=== PATIENT | female | born 1955 | race Hispanic/Latino ===

== ENCOUNTER 2024-10-11 06:07 | Observation (INO) | payer MEDICARE ==
[2024-10-07 08:50] LABS: IMMATURE GRANULOCYTE ABSOLUTE 0.01 K/uL (0-1); NUCLEATED RED BLOOD CELLS 0.0 % (0.0-0.19); PLATELET COUNT (AUTO) 263 K/uL (130-400); RED BLOOD CELL COUNT(AUTO) 4.55 MIL/uL (4.00-5.50); RED CELL DISTRIBUTION WIDTH 12.6 % (11.0-15.5); WHITE BLOOD COUNT (AUTO) 8.0 K/uL (4.8-10.8)
[2024-10-07 09:04] LABS: INR 0.95 (0.85-1.15)
[2024-10-07 09:11] LABS: APPEARANCE,URINE CLEAR (CLEAR); GLUCOSE, URINE (UA) NEGATIVE (NEGATIVE); LEUKOCYTE ESTERASE ,URINE NEGATIVE Leu/uL (NEGATIVE); NITRATE,URINE NEGATIVE (NEGATIVE); OCCULT BLOOD,URINE NEGATIVE (NEGATIVE)
--- NOTE | 2024-10-07 09:22 | EKG ---
[facility] Test Date: 2024-10-07 Test Time: 08:41:39 Pat Name: CARLIN NATHAN Department: [facility] Room: Gender: F [place] Manager: [id number] : 1955 Requested By: LAURIE LANDAVERDE Order Number: [id number] Reading MD: Sangita Casey Measurements Intervals [place] Rate: 61 P: 29 OR: 181 QRS: 48 QRSD: 81 T: 42 QT: 424 QTc: 427 Interpretive Statements Sinus rhythm Compared to ECG 09/14/2024 09:18:12 No significant changes Electronically Signed On 10-07-2024 12:27:52 CDT by Sangita Casey Please click the below link to view image of tracing.
[2024-10-07 09:29] VITALS: BP 112/75; PULSE 74; RESP 13; TEMP 97.9
[2024-10-07 10:00] LABS: ADD UA MICROSCOPIC NO
[2024-10-07 10:39] LABS: CREATININE 0.5 mg/dL (0.5-1.0); GLOMERULAR FILTR. RATE CALC 101.0 mL/min (>90); GLUCOSE,RANDOM 107.0 mg/dL (70-105); SODIUM SERUM 140.0 mmol/L (136-145); UREA NITROGEN, BLOOD 22.0 mg/dL (7-18)
[2024-10-11] VITALS (25 sets, daily range): BP systolic 97–133; BP diastolic 54–76; PULSE 60–99; RESP 15–20; TEMP 97.5–98.5; O2SAT 96–97
[~2024-10-11] VITALS: Ht 149.9 cm; Wt 71.8 kg
[~2024-10-11 06:07] MED LIST: ALEN70TA80 PO; ATOR10 PO; CALCIUM VITD PO; HYDR25TA PO; MULT1TAB67 PO; VITA100C27 PO
[2024-10-11] MEDS: LACTATED RINGERS 1000ML 1,000 ML IV ONE (06:49)
[2024-10-11] MEDS ORDERED: LIDOCAINE PF 100MG/5ML (2%) SYRINGE 5ML ONE (08:18)
[2024-10-11] MEDS ORDERED: GLYCOPYRROLATE 0.2 MG/ML 5 ML VIAL ONE (08:19)
[2024-10-11] MEDS ORDERED: NEOSTIGMINE METHYLSULFATE 1MG/ML IV ONE (08:19)
[2024-10-11] MEDS ORDERED: SUCCINYLCHOLINE CHLORIDE 20 MG/ML 10 ML VIAL ONE (08:19)
[2024-10-11] MEDS ORDERED: MIDAZOLAM HCL 1 MG/ML 2ML VIAL ONE (08:20)
[2024-10-11] MEDS ORDERED: VANCOMYCIN 500 MG IV ONE (10:08)
[2024-10-11] MEDS ORDERED: [UNRECOGNIZED DRUG - OTHER] IV ONE (10:08)
--- NOTE | 2024-10-11 12:09 | OP ---
Operative Note: DATE OF PROCEDURE: 10/11/24 SURGEON: LAURIE LANDAVERDE MD MACHINE TOOL TECHNOLOGY INSTRUCTOR: [Toshia Anaya CFA] ANESTHESIA: [General anesthesia] ANESTHESIOLOGIST/MAIL PROCESSING EQUIPMENT MECHANIC: [Cale Woo CRNA] PREOPERATIVE DIAGNOSIS: [Right distal ulna osteotomy loss of fixation] POSTOPERATIVE DIAGNOSIS: [Right distal ulna osteomyelitis, infected hardware] PROCEDURE: [Right distal ulna removal of hardware, excisional debridement, bone curettage, jet lavage antibiotic irrigation placement of antibiotic loaded cement sticks x7 (two intraosseous and five peripheral] ESTIMATED BLOOD LOSS: [60 mL] INDICATIONS: [The patient is a 68-year-old female status post ulnar shortening osteotomy for treatment of an abutment syndrome recently. The patient presented to our office for evaluation and it was noted that the screws from the plates were loose and there was some loss of the osteotomy alignment. The patient's wound look well healed and there were no signs of infection such as redness, drainage, pain or decreased range of motion, night sweats or fevers. The patient was brought to the operating room for a removal of the hardware and read do internal fixation of the osteotomy. Procedure understood, risks, benefit and possible complications and the patient agreed to sign the consent form] DESCRIPTION OF PROCEDURE: [After adequate general anesthesia was achieved the patient's right upper extremity was prepped and draped in the usual manner, previous placement of the tourniquet in the proximal arm. The extremity was elevated and exsanguinated with a an Esmarch band and then tourniquet was inflated to 250 mmHg, the Esmarch band being then removed. The previous incision present in the distal ulnar aspect of the forearm which was well healed was then reopened Posey an incision through the skin followed by dissection of the subcutaneous tissue noticing that this was slightly inflamed. Further dissection down to the shaft of the ulna to expose the plate reveal the collection of cloudy fluid present in the surrounding area which was culture. After further dissection the 1st ulnar plate was identified and it was noted that the patient had significant loosening of the screws which were very easily removed as well as the plate. The patient had inflammation of the periosteum as well as inflammatory material that was debrided and cultured also. The osteotomy side had a very obvious nonunion with presence also of the inflammatory material which was removed with the rongeur and then the ulnar canal of the osteotomy site was cleaned with the use of curette as well as the screw holes in the bone removing some more material which was also sent for cu ltures. There was no gross purulence noted but definitely the tissue looked very inflamed and very suspicious for infection. The surrounding tissue of the dorsal than volar aspect of the ulna were then sharply debrided. Then the wound was copiously irrigated with jet lavage containing Ancef for a total of 3 L. Once the wound was completely debrided we proceeded then to prepare in the back table a bag of bone cement to which we added 2 g of vancomycin and then we proceeded to make a small sticks of the cement and once they were dry we proceeded then to insert one at each end of the bone in the ulnar canal and then five more were applied around the ulna for a total of seven cement sticks. While the cement was being prepared we also proceeded to deflate the tourniquet and the police were controlled with the use of the Bovie cautery and we noticed that the bone was having adequate circulation and there were no signs of necrosis. After the sticks were applied we then proceeded to close the wound with a approximation of the subcutaneous tissue with 2-0 Vicryl inverted stitches followed by closure of the skin with 3-0 nylon horizontal mattress stitches. The wound was covered with a Xeroform gauze as well as 4x4s, cast padding and a short-arm volar splint was then applied. The patient was then awakened and extubated and taken to recovery room for follow-up by anesthesia. There were no complications] LAURIE LANDAVERDE MD Oct 11, 2024 12:09
--- NOTE | 2024-10-11 12:15 | NUR ---
Unit arrival Patient arrived to the unit via bed escorted by REAL ESTATE CLOSING COORDINATOR. Patient and surgical limb assessment completed. Patient oriented to the room and educated on postop vitals and post surgical neurovascular checks. She was left in locked and low position and in no distress. Spouse at bedside.
[2024-10-11] MEDS: 0.9%NACL 1000ML 1,000 ML IV SCH (13:02)
--- NOTE | 2024-10-11 13:20 | NUR ---
Patient voided a large amount in the toilet.
--- NOTE | 2024-10-11 16:00 | NUR ---
BEDSIDE SWALLOW EVAL COMPLETED. No s/s of aspiration. Recommend regular solids, thin liquids and pills whole with liquids as tolerated. SALES ASSOCIATE KEY HOLDER reviewed results and recommendations with patient and nurse Jennifer. SALES ASSOCIATE KEY HOLDER educated patient on risks and consequences of aspiration. Speech therapy not warranted at this time. All questions answered. Addendum: 10/11/[address] OSMEL WICK Amended: Links added.
[2024-10-11] MEDS: ASPIRIN 81 MG EC TAB PO SCH (20:23)
--- NOTE | 2024-10-11 20:56 | NUR ---
PT requests PT eval order during day shift. No order present as of this time MD is still in OR. PT eval rendered as patient was already up walking in room with nursing. Sling was adjusted, patient was provided with ice, water, SCDS and extra pillows and wedges to elevate arm. Pt education provided regarding postioning of arm, DC planning and plan of care. Education provided regarding pain management. Fall alarm and call wright in reach. Please enter the PT order for eval. Thanks.
[2024-10-12] VITALS (7 sets, daily range): BP systolic 96–121; BP diastolic 56–76; PULSE 64–91; RESP 16–20; TEMP 97.6–98; O2SAT 96–99
--- NOTE | 2024-10-12 12:15 | PN ---
Late entry. Patient seen this morning at 8:00 a.m.. Ortho postop day one. The patient is awake alert and oriented. She is resting comfortably seated in a chair at the bedside. Vital signs have remained stable and she has remained afebrile. WBCs also normal. Pending cultures. Voiding on her own without difficulty. She is ambulating in the confines of her room. Laboratory results reviewed. Discuss operative findings. Discussed we will need to consider IV infusion for antibiotics. Patient states her insurance likely covers that and we will defer that to case management. Her dressing is intact. She is able to make a near full composite fist and I have advised her to keep mobility of the interphalangeal joints to avoid stiffness. Assessment: Removal of distal ulnar hardware, excision no debridement, bone curettage, jet lavage with the antibiotic irrigation, placement of antibiotic loaded cement sticks x7 (two intraosseous and five peripheral) Plan: Continue with Dr. Rich protocol. Continue with discharge planning. Vitals/Labs Vital Signs Date Time Temp Pulse Resp B/P (MAP) Pulse Ox O2 Delivery O2 Flow Rate FiO2 10/12/24 08:43 99 Room Air* 0 21 10/12/24 08:00 98.1 91 20 121/76 Medications Current Medications Cefazolin Sodium 2 gm STK-MED ONCE .ROUTE; Start 10/11/24 at 06:21; Stop 10/11/24 at 06:21; Status DC Lactated Ringer's 1,000 ml @ As Directed STK-MED ONCE IV Last administered on 10/11/24at 06:49; Start 10/11/24 at 06:21; Stop 10/11/24 at 06:21; Status DC Lidocaine HCl 100 mg STK-MED ONCE .ROUTE; Start 10/11/24 at 08:18; Stop 10/11/24 at 08:18; Status DC Ondansetron HCl 4 mg STK-MED ONCE .ROUTE; Start 10/11/24 at 08:18; Stop 10/11/24 at 08:19; Status DC Succinylcholine Chloride 200 mg STK-MED ONCE .ROUTE; Start 10/11/24 at 08:19; Stop 10/11/24 at 08:19; Status DC Dexamethasone Sodium Phosphate 10 mg STK-MED ONCE .ROUTE; Start 10/11/24 at 08:19; Stop 10/11/24 at 08:19; Status DC Glycopyrrolate 1 mg STK-MED ONCE .ROUTE; Start 10/11/24 at 08:19; Stop 10/11/24 at 08:19; Status DC Propofol 200 mg STK-MED ONCE IV; Start 10/11/24 at 08:19; Stop 10/11/24 at 08:19; Status DC Neostigmine Methylsulfate 10 mg STK-MED ONCE IV; Start 10/11/24 at 08:19; Stop 10/11/24 at 08:20; Status DC Rocuronium [place] 50 mg STK-MED ONCE .ROUTE; Start 10/11/24 at 08:19; Stop 10/11/24 at 08:20; Status DC Fentanyl Citrate 100 mcg STK-MED ONCE .ROUTE; Start 10/11/24 at 08:19; Stop 10/11/24 at 08:20; Status DC Midazolam HCl 2 mg STK-MED ONCE .ROUTE; Start 10/11/24 at 08:20; Stop 10/11/24 at 08:20; Status DC Ropivacaine 150 mg STK-MED ONCE .ROUTE; Start 10/11/24 at 08:27; Stop 10/11/24 at 08:28; Status DC Ondansetron HCl 4 mg STK-MED ONCE .ROUTE; Start 10/11/24 at 08:51; Stop 10/11/24 at 08:52; Status DC Ephedrine Sulfate 50 mg STK-MED ONCE .ROUTE; Start 10/11/24 at 09:05; Stop 10/11/24 at 09:05; Status DC Cefazolin Sodium 1 gm STK-MED ONCE .ROUTE; Start 10/11/24 at 09:10; Stop 10/11/24 at 09:10; Status DC Cefazolin Sodium 1 gm STK-MED ONCE .ROUTE; Start 10/11/24 at 09:37; Stop 10/11/24 at 09:37; Status DC Vancomycin HCl 400 ml @ As Directed STK-MED ONCE IV; Start 10/11/24 at 10:08; Stop 10/11/24 at 10:08; Status DC Cefazolin Sodium 2 gm STK-MED ONCE IVPB Last administered on 10/11/24at 08:47; Start 10/11/24 at 08:47; Stop 10/11/24 at 10:17; Status DC Cefazolin Sodium 3 gm STK-MED ONCE IVPB Last administered on 10/11/24at 10:00; Start 10/11/24 at 10:00; Stop 10/11/24 at 10:17; Status DC Vancomycin HCl 1 gm STK-MED ONCE TP Last administered on 10/11/24at 10:16; Start 10/11/24 at 10:16; Stop 10/11/24 at 10:17; Status DC Vancomycin HCl 1 gm STK-MED ONCE TP Last administered on 10/11/24at 10:16; Start 10/11/24 at 10:16; Stop 10/11/24 at 10:17; Status DC Sodium Chloride 1,000 ml @ 100 mls/hr Q10H IV Last administered on 10/11/24at 13:02; Start 10/11/24 at 12:00; Stop 10/12/24 at 11:59; Status DC Acetaminophen/ Hydrocodone Bitart 1 tab Q4H PRN PO; Start 10/11/24 at 12:00; Stop 10/16/24 at 11:59 Acetaminophen/ Hydrocodone Bitart 2 tab Q4H PRN PO; Start 10/11/24 at 12:00; Stop 10/16/24 at 11:59 Polyethylene Glycol 17 gm DAILY PO Last administered on 10/12/24at 08:38; Start 10/12/24 at 09:00; Stop 11/11/24 at 08:59 Bisacodyl 10 mg DAILY PRN PO; Start 10/13/24 at 12:00; Stop 11/12/24 at 11:59 Bisacodyl 10 mg DAILY PRN RC; Start 10/14/24 at 12:00; Stop 11/13/24 at 11:59 Ketorolac Tromethamine 15 mg Q6H PRN IV Last administered on 10/11/24at 22:11; Start 10/11/24 at 13:00; Stop 10/16/24 at 12:59 Diphenhydramine HCl 25 mg Q6H PRN PO; Start 10/11/24 at 12:00; Stop 11/10/24 at 11:59 Diphenhydramine HCl 25 mg Q6H PRN IVP; Start 10/11/24 at 12:00; Stop 11/10/24 at 11:59 Cefazolin Sodium 2 gm Q8H IVPB; Start 10/11/24 at 13:00; Stop 10/11/24 at 13:03; Status DC Potassium Chloride 100 ml @ 100 mls/hr AD PRN IV; Start 10/11/24 at 12:00; Stop 11/10/24 at 11:59 Aspirin 81 mg BID PO Last administered on 10/12/24at 08:38; Start 10/11/24 at 21:00; Stop 11/10/24 at 20:59 Cefazolin Sodium 2 gm Q8H IVPB Last administered on 10/12/24at 08:38; Start 10/11/24 at 17:00; Stop 11/01/24 at 16:59 PANCHITO FARMER NP Oct 12, 2024 12:15
--- NOTE | 2024-10-12 14:22 | NUR ---
DCP CM MET WITH PT AND HER IN ROOM THIS MORNING, INITIAL ASSESSMENT DONE. PATIENT IS INDEPENDENT PRIOR TO SURGERY, LIVES AT HOME WITH HER . PATIENT HAS A WALKER, 2 CANES, SHOWER CHAIR, GRAB BARS BESIDE TOILET, SHOWER ALSO HAS GRAB BARS, BPM. DENIES ANY OTHER EQUIPMENT/SERVICES. FEELS SAFE TO GO BACK HOME, STILL DRIVE, ABLE TO ASSIST WITH TRANSPORTATION AND NEEDS NECESSARY. DISCUSSED POSSIBLE HOME HEALTH FOR IV ABX AND SKILLED NURSE VISIT/PT VS AIU/GOOD LISS/SNF. PT VERBALIZED SHE PREFERS HOME W/HH OR AIU, DOES NOT WANT TO SNF IF IF IT IS THE LAST RESORT AND ONLY IF THERE'S NO OTHER OPTION THEN SHE IS OKAY W/SNF IN [place]. INFORMED PT WILL AWAIT DR AKHIL LARAS ON ABX. PT SIGNED CONSENT [facility] FOR ANY IN NETWORK HOME HEALTH/DME/AIU/SNF IN [place]. DCP HOME W/HH VS AIU/SNF. PENDING MD RECS. CM TO FOLLOW THROUGH W/DCP ONCE MD GIVE RECOMMENDATIONS. Addendum: 10/12/24 at 1427 by GERARDO ROCA LVN CM Amended: Links added.
--- NOTE | 2024-10-12 14:59 | NUR ---
CM NOTE: POC CM SPOKE TO DR LANDAVERDE RE: DCP. PER MD WILL AWAIT CULTURE RESULTS AT THIS TIME, THEN WILL PLAN FOR HOPEFULLY HOME W/HH DAILY IV ABX, OR JUST PO ABX AT HOME DEPENDING ON RESULT. CM TO CONTINUE TO FOLLOW UP.
[2024-10-12] MEDS: HYDROcodone/APAP 5/325 1 TAB TABLET PO PRN (15:06)
[2024-10-13 00:02] VITALS: BP 126/49; PULSE 76; RESP 18; TEMP 98.2
[2024-10-13 04:24] VITALS: BP 116/64; PULSE 59; RESP 18; TEMP 97.7
[2024-10-13 08:00] VITALS: BP 121/78; PULSE 70; RESP 18; TEMP 98; O2SAT 100
[2024-10-13 12:00] VITALS: BP 127/85; PULSE 64; RESP 18; TEMP 98.4
--- NOTE | 2024-10-13 13:25 | NUR ---
DC'd Patient from PT list . No orders for PT recd from Dr Rich.
--- NOTE | 2024-10-13 14:53 | HMCIMG ---
WRIST COMP 3+VWS RT REASON: ORIF RT WRIST FX TECHNIQUE: 6 C-arm images were obtained. FINDINGS: History ORIF of the right ulnar with placement of orthopedic plates bilaterally both medially and laterally in the distal left lower lobe with multiple screws transfixing. The left ulna appears to be in satisfactory position.. There is no joint effusion. The soft tissues appear unremarkable. There is no evidence of a radiopaque foreign body. IMPRESSION: Patient undergoing ORIF with left distal ulna with orthopedic hardware appears to be in satisfactory position.
[2024-10-13 16:00] VITALS: BP 114/72; PULSE 60; RESP 18; TEMP 98.6
[2024-10-13] MEDS: HYDROcodone/APAP 5/325 1 TAB TABLET PO PRN (17:20)
[2024-10-13 20:00] VITALS: BP 109/55; PULSE 60; RESP 19; TEMP 97.6
[2024-10-14] VITALS: BP 99/57; PULSE 64; RESP 18; TEMP 97.8
[2024-10-14 04:00] VITALS: BP 100/59; PULSE 57; RESP 19; TEMP 97.8
[2024-10-14 08:00] VITALS: BP 146/89; PULSE 74; RESP 18; TEMP 99.7; O2SAT 97
[2024-10-14 12:00] VITALS: BP 148/91; PULSE 67; RESP 18; TEMP 97.7
[2024-10-14] MEDS ORDERED: HYDR-4060 PO (15:59)
[2024-10-14] MEDS ORDERED: SULF1TAB42 PO (15:59)
[2024-10-14 16:00] VITALS: BP 140/89; PULSE 69; RESP 18; TEMP 97.7
--- NOTE | 2024-10-14 16:09 | DS ---
DISCHARGE SUMMARY [ Date of admission: 10/11/2024 Date of discharge: 10/14/2024 Final diagnosis: Right distal ulna failed osteotomy fixation. Possible acute osteomyelitis. Surgical procedures: On 10/11/2024 removal of hardware right distal ulna, excisional debridement irrigation bone curettage and placement, of cement antibiotic sticks. 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 The patient was admitted recently for a distal ulnar shortening procedure that went uneventful. The patient presented to our office for follow-up and it was noted that the hardware was loose and the screws holding the two plates were coming apart. The patient has been admitted for a repair of this abnormality. Previous medical history positive for rheumatoid arthritis, hyperlipidemia, hypertension, osteoarthritis, right distal radius fracture. Her previous surgical history was positive for BTL, bunionectomy, ACL reconstruction, right total knee arthroplasty. The family history was positive for Parkinson's disease and ovarian cancer. The patient has a known drug allergies. Hospital Course. The patient was admitted and taken to the operating room the same day and it was noted that the area seemed to have an acute infection, the hardware was then removed and the procedure mentioned above was performed. Postoperatively the patient was placed in a short-arm splint and she was informed of the findings. She was put on IV antibiotics while waiting for the cultures. She did very well maintaining hemodynamic stable and afebrile. Her laboratories were also normal. The patient results of the cultures were negative a three days and at this time the patient was dismissed on oral antibiotics to be follow-up in the office for final results. Condition of discharge: Fair. Plan: The patient will be dismissed home and she will be followed up in the offfice in one week. She is to continue with the oral antibiotics. The plan will be to complete the antibiotics and then bring her back to the operating room for an attempt to another fixation or procedures as needed. She is to take Bactrim DS twice a day for 30 days. Pain medication has also been provided. She is to continue wearing the splint until she is seen in the office. Continue with regular diet.] LAURIE LANDAVERDE MD Oct 14, 2024 16:09
--- NOTE | 2024-10-14 17:00 | NUR ---
discharge printed discharge paperwork given to patient, educated patient and family regarding diet, activity, follow ups, medications, signs and symptoms to report/return to ER. answered patient questions, patient and family understood.
== END 2024-10-14 17:00 | disposition home or self-care (01) ==
LOC: DAH 06:07 → INTOOBSV 06:08 → DAHIP 06:08 → DAH 06:08 → 4DH 12:15
PROVIDERS: ADMIT Orthopaedic Surgery; ATTEND Orthopaedic Surgery
DX: T84.112A Breakdown (mechanical) of internal fixation device of bone of right forearm, initial encounter (principal); G89.18 Other acute postprocedural pain; M86.8X3 Other osteomyelitis, forearm; M06.9 Rheumatoid arthritis, unspecified; I10 Essential (primary) hypertension; E78.5 Hyperlipidemia, unspecified; Z86.2 Personal history of diseases of the blood and blood-forming organs and certain disorders involving the immune mechanism; Z79.899 Other long term (current) drug therapy; Y92.89 Other specified places as the place of occurrence of the external cause
CPT/HCPCS: 80048; 85025; 85610; 87086; 81003; 36415; 93005; 87641; 26320; 96365; 96375; 64415; 87070 ×2; 87076 ×2; 88300; 88304; 73110; 97161; 97116; 97530 ×2; 92610; 96366 ×3; 96376; A4663; J0690 ×14; J7120; J3373 ×3; J3010; J1100; J0330; J3490 ×3; J2003; J2250; J2704; J2405 ×2; J2710; J2795; J1885; A6223; Q4050; A4649; A4930 ×2; C1713; A5120; A4215; A4223; A4222; A4221; A4600; G0378 ×52